=== PATIENT | male | born 1930 | race Caucasian/White ===

== ENCOUNTER → 2018-04-04 | Outpatient (CLI) | payer MEDICARE, OTHER ==
[~2018-04-04] MED LIST: ACET325 PO; ASCO500; ASPI325 PO; ASPI81EC PO; ATOR10; BAYER CHEWABLE81 MG PO; BENZ100A PO; CALCIT950; CIPR500 PO; CYAN500; DONE10 PO; DONE5 PO; FEXO180; FISH1000; FOLI1; GLUC500; IBUP200; LEVSOD50 PO; MEMA10 PO; MSM1000; NITR.4SL; OXYACE7.5T PO; PANT40 PO; SILD25T; ZOLP10
[2018-04-04 12:24] LABS: Source, Urine Voided
[2018-04-04 14:32] LABS: Appearance, Urine Clear (Clear); Bilirubin, Urine Neg (Neg); Blood, Urine 2+ (Neg); Color, Urine Yellow (P-Yellow); Glucose Qualitative, Urine Neg (Neg); Ketones, Urine Neg (Neg); Leukocyte Esterase, Urine 1+ (Neg); Nitrite, Urine Neg (Neg); Protein, Urine 1+ (Neg); Urobilinogen, Urine NORM (Normal)
[2018-04-04 14:54] LABS: Bacteria Few /hpf; Mucus Light (0-Heavy); Squamous Epithelial Cells Rare /hpf (Few)
== END | disposition home or self-care (01) ==
LOC: LAB SHORT 12:15 → LAB 12:15
PROVIDERS: Family Medicine
DX: N39.0 Urinary tract infection, site not specified (principal)
CPT/HCPCS: 81001; 87086